=== PATIENT | male | born 1980 | race African-American/Black ===

== ENCOUNTER 2022-01-01 20:40 | Emergency (ER) | payer OTHER, SELFPAY ==
--- NOTE | ~2022-01-01 | XR_ITS ---
XR forearm LT 2V 01/01/2022 21:40 INDICATION: Left arm pain after fall PROCEDURE: 2 views left forearm COMPARISON: No prior studies for comparison. FINDINGS: Fracture, dislocation or subluxation is not identified. The soft tissues appear within norm al limits. No foreign bodies are identified. IMPRESSION: 1: NO ACUTE BONE OR JOINT ABNORMALITY IDENTIFIED. Reviewed, dictated and finalized at location A.
--- NOTE | ~2022-01-01 | XR_ITS ---
XR wrist LT min 3V 01/01/2022 21:40 INDICATION: Left wrist pain after fall PROCEDURE: 4 views left wrist COMPARISON: No prior studies for comparison. FINDINGS: Fracture, dislocation or subluxation is not identified. The soft tissues appear within norm al limits. No foreign bodies are identified. IMPRESSION: 1: NO ACUTE BONE OR JOINT ABNORMALITY IDENTIFIED. Reviewed, dictated and finalized at location A.
--- NOTE | ~2022-01-01 | XR_ITS ---
XR hand RT min 3V 01/01/2022 22:52 INDICATION: Right hand pain after fall PROCEDURE: 3 views right hand COMPARISON: No prior studies for comparison. FINDINGS: Fracture, dislocation or subluxation is not identified. The soft tissues appear within norm al limits. No foreign bodies are identified. IMPRESSION: 1: NO ACUTE BONE OR JOINT ABNORMALITY IDENTIFIED. Reviewed, dictated and finalized at location A.
[2022-01-01 20:56] VITALS: BP 118/87; PULSE 93; RESP 20; TEMP 36.6; O2SAT 100
--- NOTE | 2022-01-01 21:22 | ED.GENADULT ---
HPI - General Adult General Chief complaint: Wound/Laceration Stated complaint: wound to left forearm Time Seen by Provider: 01/01/22 21:08 History of Present Illness HPI narrative: Patient is a 41-year-old male in police custody here for evaluation of a wound to his left forearm sustained in a fall. Patient states he was running in a grassy field from the police when he tripped and fell forward onto outstretched hands. he denies head injury or loss of consciousness. He is unsure what he scraped his arm on. Last tetanus shot was 8 months ago. Denies any difficulty moving his arms or wrist. Related Data Allergies Allergy/AdvReac Type Severity Reaction Status Date / Time No Known Allergies Allergy Verified 01/01/22 20:41 Review of Systems Review of Systems: Gen.: Denies fevers or chills Eyes: Denies eye pain or visual change ENT: Denies congestion Respiratory: Denies shortness of breath or cough CV: Denies chest pain or palpitations GI: Denies abdominal pain nausea, emesis or diarrhea denies burning, urgency, frequency or hematuria Musculoskeletal: Denies back pain or muscle pain Neuro: Denies numbness, tingling, weakness or focal weakness Skin: Reports laceration Except as documented, all other systems reviewed and negative Exam Narrative: APPEARANCE: Well appearing, no pain in distress, well-nourished. Head: Normocephalic and atraumatic. EYES: PERRLA/EOMI, conjunctivae clear NOSE: No nasal drainage EARS: External ear normal in appearance THROAT: Oropharynx is clear. Mucous membranes are moist. NECK: Supple. No adenopathy, no masses. RESPIRATORY: Airway patent, respirations nonlabored. Clear to auscultation bilaterally, no rales, rhonchi, wheezing. CARDIOVASCULAR: 2+ radial pulses. Regular rate and rhythm without murmurs, rubs, or gallops. ABDOMINAL: Normoactive bowel sounds. Soft, nontender, nondistended. No rebound tenderness or guarding. MUSCULOSKELETAL: Tender to palpation over of right hand. No anatomic snuffbox tenderness. Tender to palpation over left forearm proximal to laceration. Full range of motion in bilateral hands and arms. Sensation intact over entirety of bilateral upper extremity. NEURO: Normal speech. No focal neurologic deficits. SKIN: Patient has a 5 cm irregular laceration to his left forearm that is contaminated with grass and dirt. Wound irrigated extensively, examined in bloodless field, no evidence of tendon laceration or retained FB. PSYCHIATRIC: Normal affect/mood. Course Vital Signs Vital signs: Vital Signs Temperature 97.9 F 01/01/22 20:56 Pulse Rate 93 01/01/22 20:56 Respiratory Rate 20 01/01/22 20:56 Blood Pressure 118/87 01/01/22 20:56 Pulse Oximetry 100 01/01/22 20:56 Oxygen Delivery Room Air 01/01/22 20:56 Temperature 97.9 F 01/01/22 20:56 Pulse Rate 93 01/01/22 20:56 Respiratory Rate 20 01/01/22 20:56 Blood Pressure 118/87 01/01/22 20:56 Pulse Oximetry 100 01/01/22 20:56 Oxygen Delivery Room Air 01/01/22 20:56 Procedures Laceration Laceration 1: Date: 01/01/22 Time: 22:38 Site: other (left forearm) Side (If applicable): left Size (cm): 5 Description: linear Depth: involves muscle layer Local Anesthetic: lidocaine 1% and with epi Amount of anesthesia used (mL): 5 Pre-repair: wound explored, irrigated, irrigated extensively and minor debridement ====== Skin Level ====== Skin layer closed with: nylon Size (cm): 4-0 Number of sutures: 9 Technique: simple, interrupted ====== Subcutaneous Layer ====== ====== Muscle Layer ====== ====== Tendon Layer ====== Medical Decision Making [facility] Narrative Medical decision making narrative: 41-year-old male here for evaluation of a 5 cm contaminated laceration sustained to his left forearm from an unknown object prior to arrival. Wound was irrigated extensively of all visible de
== END 2022-01-01 23:33 ==
PROVIDERS: Emergency Provider Emergency Medicine
DX: S51.822A Laceration with foreign body of left forearm, initial encounter (principal); W01.0XXA Fall on same level from slipping, tripping and stumbling without subsequent striking against object, initial encounter
CPT/HCPCS: 12002; 73090; 73110; 73130; 99283